=== PATIENT | male | born 1960 | race Caucasian/White ===

== ENCOUNTER 2018-07-12 05:45 | Day surgery (SDC) | payer OTHER ==
[~2018-07-12] VITALS: Ht 185.4 cm; Wt 72.3 kg
[2018-07-12 07:19] VITALS: Ht 185.4 cm; Wt 72.3 kg
[2018-07-12] MEDS ORDERED: AMBIEN (07:22)
[2018-07-12] MEDS ORDERED: VITAMIN B-12 (07:22)
[2018-07-12] MEDS ORDERED: ALLERGY MEDS (07:22)
[2018-07-12 07:38] VITALS: BP 128/84; PULSE 67; RESP 16
[2018-07-12] MEDS ORDERED: FENTAnyl 50 MCG/ML VIAL ONE (08:22)
[2018-07-12] MEDS ORDERED: MIDAZOLAM 1 MG/ML 2 ML INJ ONE ×2 (08:22)
[2018-07-12 08:32] VITALS: BP 124/79; PULSE 73; RESP 18
== END 2018-07-12 15:12 | disposition home or self-care (01) ==
LOC: GIL 05:45
PROVIDERS: ATTEND Internal Medicine Gastroenterology
DX: K29.60 Other gastritis without bleeding (principal)
CPT/HCPCS: 43239; 88305; J2250; J3010; Z7610